=== PATIENT | female | born 1990 | race Caucasian/White ===

== ENCOUNTER → 2016-03-09 | Outpatient (CLI) | payer BC ==
[~2016-03-09] MED LIST: CIPR500T78 PO; HYDR-757 PO; HYOS0.1217 PO; IBUP-15 PO; LEVO25TA5; ONDA-42 SL; SULF1TAB35 PO; TRAM-21 PO
--- NOTE | 2016-03-09 18:24 | Diagnostic Imaging Report ---
EXAMINATION: Transabdominal and transvaginal pelvic ultrasound. INDICATION: Irregular cycles. Pelvic pain. FINDINGS: The urinary bladder appears unremarkable. The uterus is 6.2 x 4.6 x 2.7 cm. The endometrial stripe is 0.7 cm in thickness. The myometrium is slightly heterogenous with no discrete lesion. Multiple numerous foci of hyperechogenicity is seen in the myometrium. This can be seen with adenomyosis. The right ovary is 2.9 x 1.9 x 1.7 cm. The left ovary is 3.3 x 2.6 x 1.7 cm. Both ovaries demonstrate arterial and venous waveforms. Normal follicles are seen. No adnexal mass or significant free fluid. No fluid collection is seen. IMPRESSION: Heterogenous myometrium with no discrete lesion. The findings could be related to adenomyosis. Dictated by: Dictated on workstation # [id number]
== END ==
LOC: RAD 13:27
PROVIDERS: ATTEND Obstetrics & Gynecology
DX: R10.2 Pelvic and perineal pain (principal); N93.8 Other specified abnormal uterine and vaginal bleeding
CPT/HCPCS: 76830; 76856

== ENCOUNTER → 2016-05-15 | Outpatient (CLI) | payer BC ==
--- NOTE | 2016-05-15 15:10 | Diagnostic Imaging Report ---
EXAMINATION: Transabdominal and transvaginal pelvic ultrasound. INDICATION: Pelvic pain. Check IUD. FINDINGS: The uterus is 7.2 x 5.3 x 4.1 cm. The endometrial stripe is 1 cm in thickness. The IUD appears to be in good position. The left ovary is 4.3 x 4.2 x 4.9 cm with an underlying simple appearing 3.4 x 4.2 x 3.5 cm cyst. No solid component or internal vascularity is identified. There is vascularity demonstrated in the adjacent ovarian tissue with vascular waveforms of venous and arterial character seen. The right ovary is obscured by bowel gas. The urinary bladder appears unremarkable. IMPRESSION: The IUD is seen and appears to be in good position. There is a simple appearing 4.2 cm left ovarian cyst. Dictated by: Dictated on workstation # [id number]
== END ==
LOC: RAD 14:12
PROVIDERS: ATTEND Obstetrics & Gynecology
DX: R10.2 Pelvic and perineal pain (principal); T83.39XA Other mechanical complication of intrauterine contraceptive device, initial encounter
CPT/HCPCS: 76830; 76856

== ENCOUNTER 2016-06-24 10:01 | Emergency (ER) | payer BC ==
[~2016-06-24] VITALS: Ht 152.4 cm; Wt 83.9 kg
[~2016-06-24 10:01] MED LIST changes: -LEVO25TA5; -SULF1TAB35 PO
[2016-06-24] MEDS ORDERED: LEVO25TA5 (10:30)
[2016-06-24 10:37] LABS: BILIRUBIN,URINE NEGATIVE (NEGATIVE); KETONES,URINE 3+ (NEGATIVE); LEUKOCYTE ESTERASE ,URINE 3+ (NEGATIVE); NITRITE,URINE NEGATIVE (NEGATIVE); PH,URINE 7 (5-9); PROTEIN,URINE NEGATIVE (NEGATIVE); UROBILINOGEN,URINE NORMAL (NORMAL)
[2016-06-24 10:45] LABS: WBC,URINE 25-50 /HPF
--- NOTE | 2016-06-24 10:48 | ED Abdominal Pain ---
General Chief Complaint: Abdominal/GI Problems Stated Complaint: OVARY PAIN, POSSIBLY FROM MIRENA Nursing Triage Note: States having a meriana plced 2 months ago. States yesterday having lower rt quad abd pain with diarrhea. No fever. States having difficulty emptying bladder Sepsis Screen: No Definite Risk Source of Information: Patient Exam Limitations: No Limitations History of Present Illness Time Seen By Provider: 10:46 Initial Comments To ER with right lower quadrant abdominal pain. States she has had some diarrhea with this. No fevers or chills. She does have a sensation of difficulty emptying her bladder. She had a Mirena placed 2 months ago. She has had some vaginal discharge. Timing/Duration: 1-2 Days Severity/Quality: Moderate Radiation: No Radiation Activities at Onset: None Associated Symptoms: No Fever/Chills, No Nausea/Vomiting Allergies and Home Medications Allergies Coded Allergies: Penicillins (Unverified Allergy, Unknown, 06/24/16) Home Medications Ibuprofen 200 Mg Tablet, 600 MG PO Q6H PRN for CRAMPS, #60 Prescribed by: KENNETH MUNOZ on 10/22/14 1035 Levothyroxine Sodium 25 Mcg Tablet, #30 (Reported) Review of Systems Constitutional: see HPI EENTM: No Symptoms Reported Respiratory: No Symptoms Reported Cardiovascular: No Symptoms Reported Gastrointestinal: See HPI, Abdominal Pain, Diarrhea Genitourinary: No Symptoms Reported Musculoskeletal: no symptoms reported Skin: no symptoms reported Psychiatric/Neurological: No Symptoms Reported Endocrine: No Symptoms Reported Hematologic/Lymphatic: No Symptoms Reported Past Xxrntnd-Fdywlf-Rkqlyv Hx Patient Social History Alcohol Use: Denies Use Recreational Drug Use: No Smoking Status: Never a Smoker 2nd Hand Smoke Exposure: No Recent Foreign Travel: No Contact w/Someone Who Travel: No Recent Infectious Disease Expo: No Recent Hopitalizations: No Immunizations Up To Date Tetanus Booster (TDap): More than 5yrs Seasonal Allergies Seasonal Allergies: Yes Surgeries HX Surgeries: Yes (LEFT ARM FX ORIF, lap for endometrosis) Surgeries: Orthopedic Respiratory Hx Respiratory Disorders: No Cardiovascular Hx Cardiac Disorders: No Neurological Hx Neurological Disorders: No Reproductive System Hx Reproductive Disorders: Yes Female Reproductive Disorders: Menstrual Problems Genitourinary Hx Genitourinary Disorders: No Genitourinary Disorders: Bladder Infection Gastrointestinal Hx Gastrointestinal Disorders: No Musculoskeletal Hx Musculoskeletal Disorders: Yes Musculoskeletal Disorders: Fractures Endocrine Hx Endocrine Disorders: Yes Endocrine Disorders: Hypothyroidsim Cancer Hx Cancer: No Psychosocial Hx Psychiatric Problems: No Integumentary HX Skin/Integumentary Disorder: No Blood Transfusions Hx Blood Disorders: No Family Medical History Family Medial History: FH: depression Physical Exam Vital Signs VS - Last 72 Hours, by Label 06/24/16 10:23 Pulse 91 Resp 18 B/P (MAP) 117/79 Pulse Ox 100 Capillary Refill : Less Than 3 Seconds General Appearance: WD/WN, no apparent distress HEENT: PERRL/EOMI, normal ENT inspection Neck: non-tender, full range of motion Respiratory: no respiratory distress, no accessory muscle use Cardiovascular: regular rate, rhythm, no murmur Gastrointestinal: normal bowel sounds, soft, tenderness Extremities: normal range of motion, non-tender Pelvic: discharge (there is a bit of discharge from the cervix that is mucousy in appearance. The strings of the IUD are seen in place. There is some cervical friability.), other Neurologic/Psychiatric: alert, normal mood/affect, oriented x 3 Skin: normal color, warm/dry Progress/Results/Core Measures Results/Orders Lab Results Laboratory Tests Test 06/24/16 10:20 06/24/16 10:59 06/24/16 11:09 Range/Units Urine Color YELLOW Urine Clarity CLEAR Urine pH 7 5-9 Urine Specific [place] 1.010 L 1.016-1.022 Urine Protein NEGATIVE NEGATIVE Urine Glucose (UA) NEGATIVE NEGATIVE Urine Ketones 3+ H NEGATIVE Urine Nitrite NEGATIVE NEGATIVE Urine Bilirubin NEGATIVE NEGATIVE Urine Urobilinogen NORMAL NORMAL MG/DL Urine Leukocyte Esterase 3+ H NEGATIVE Urine RBC (Auto) 3+ H NEGATIVE Urine RBC NONE /HPF Urine WBC 25-50 H /HPF Urine Squamous Epithelial Cells 5-10 /HPF Urine Crystals NONE /LPF Urine Bacteria TRACE /HPF Urine Casts NONE /LPF Urine Mucus NEGATIVE /LPF Urine Culture Indicated YES White Blood Count 11.1 H 4.3-11.0 10^3/uL Red Blood Count 4.70 4.35-5.85 10^6/uL Hemoglobin 13.7 11.5-16.0 G/DL Hematocrit 41 35-52 % Mean Corpuscular Volume 87 80-99 FL Mean Corpuscular Hemoglobin 29 25-34 PG Mean Corpuscular Hemoglobin Concent 34 32-36 G/DL Red Cell Distribution Width 12.4 10.0-14.5 % Platelet Count 279 130-400 10^3/uL Mean Platelet Volume 10.7 H 7.4-10.4 FL Neutrophils (%) (Auto) 73 42-75 % Lymphocytes (%) (Auto) 17 12-44 % Monocytes (%) (Auto) 7 0-12 % Eosinophils (%) (Auto) 3 0-10 % Basophils (%) (Auto) 0 0-10 % Neutrophils # (Auto) 8.1 H 1.8-7.8 X 10^3 Lymphocytes # (Auto) 1.8 1.0-4.0 X 10^3 Monocytes # (Auto) 0.8 0.0-1.0 X 10^3 Eosinophils # (Auto) 0.4 H 0.0-0.3 10^3/uL Basophils # (Auto) 0.0 0.0-0.1 10^3/uL Micro Results Microbiology 06/24/16 Genital Culture, Resulted Pending 06/24/16 Wet Prep - Final, Resulted My Orders Orders - MICHELLE VALENTIN APRN Cbc With Automated Diff (06/24/16 10:48) Wet Prep (06/24/16 10:54) Neisseria Gonorrhea Dna (06/24/16 10:54) Chlamydia Dna (06/24/16 10:54) Genital Culture (06/24/16 10:54) Ct Abdomen/Pelvis Wo (06/24/16 11:15) Vital Signs/I&O Vital Sign - Last 12Hours 06/24/16 10:23 Pulse 91 Resp 18 B/P (MAP) 117/79 Pulse Ox 100 Blood Pressure Mean: 92 Point of Care Testing Urine -Bedside: Negative Diagnostic Imaging Diagonstic Imaging: CT Comments NAME: PORFIRIO THURSTON [facility] REC#: [id number] PT STATUS: REG ER : 1990 PHYSICIAN: MICHELLE VALENTIN APRN ADMIT DATE: 06/24/16/ER Draft Date of Exam:06/24/16 CT ABDOMEN/PELVIS WO PROCEDURE: CT abdomen and pelvis without contrast. TECHNIQUE: Multiple contiguous axial images were obtained through the abdomen and pelvis without the use of intravenous contrast. INDICATION: Pelvic pain and diarrhea which has increased in severity over the past several days. The liver, gallbladder and bile ducts are normal. The spleen, pancreas and adrenals are normal. There is a 3 mm nonobstructing calculus in the upper pole of the left kidney. The right kidney is normal. There is no hydronephrosis on either side. The ureters and bladder are normal. There is an IUD in the uterus. There is a single septated cyst or two adjacent cysts in the left adnexa which involve an area measuring 2.7 x 4.4 cm. There is no right adnexal mass. No acute bowel abnormality is seen. There is no free intraperitoneal air or fluid. IMPRESSION: There is a small nonobstructing calculus in the left kidney. There is a septated cyst or two adjacent cysts in the left adnexa. No other abnormality is seen. Dictated on workstation # [id number] Dict: 06/24/16 1155 Trans: 06/24/16 1209 LISA [id number] Interpreted by: GONZALEZ NEWMAN MD Electronically signed by: Departure Communication Progress Notes 1230-there was no mention of the appendix on the CT report so I called Dr. Newman at radiology in [place]. He states that her appendix is within normal limits at this time after reviewing again. Impression Impression: Primary Impression: Urinary tract infection Disposition: 01 HOME, SELF-CARE Condition: Stable Departure-Patient Inst. Decision time for Depature: 12:28 Referrals: ERROL JACKSON MD (PCP/Family) Primary Care Physician Add. Discharge Instructions: 1. Return to ER for any worsening pain, high fevers or other concerns 2. And buttocks as directed 3. See your doctor next week All discharge instructions reviewed with patient and/or family. Voiced understanding. Scripts Sulfamethoxazole/Trimethoprim (Bactrim Ds Tablet) 1 Each Tablet 1 EACH PO BID, #10 TAB Prov: MICHELLE VALENTIN CIRCULAR [employer] FUSER 06/24/16 MICHELLE VALENTIN [employer] FUSER June 24, 2016 10:47
[2016-06-24 11:07] LABS: BASOPHILS % (AUTO) 0 % (0-10); EOSINOPHILS # (AUTO) 0.4 10^3/uL (0.0-0.3); EOSINOPHILS % (AUTO) 3 % (0-10); LYMPHOCYTES # (AUTO) 1.8 X 10^3 (1.0-4.0); LYMPHOCYTES % (AUTO) 17 % (12-44); MEAN CORPUSCULAR HEMOGLOBIN 29 PG (25-34); MEAN CORPUSCULAR HGB CONC 34 G/DL (32-36); MEAN CORPUSCULAR VOLUME 87 FL (80-99); MEAN PLATELET VOLUME 10.7 FL (7.4-10.4); MONOCYTES # (AUTO) 0.8 X 10^3 (0.0-1.0); MONOCYTES % (AUTO) 7 % (0-12); NEUTROPHILS # (AUTO) 8.1 X 10^3 (1.8-7.8); NEUTROPHILS % (AUTO) 73 % (42-75); PLATELET COUNT 279 10^3/uL (130-400); RED CELL DISTRIBUTION WIDTH 12.4 % (10.0-14.5); WHITE BLOOD COUNT 11.1 10^3/uL (4.3-11.0)
--- NOTE | 2016-06-24 12:10 | Diagnostic Imaging Report ---
PROCEDURE: CT abdomen and pelvis without contrast. TECHNIQUE: Multiple contiguous axial images were obtained through the abdomen and pelvis without the use of intravenous contrast. INDICATION: Pelvic pain and diarrhea which has increased in severity over the past several days. The liver, gallbladder and bile ducts are normal. The spleen, pancreas and adrenals are normal. There is a 3 mm nonobstructing calculus in the upper pole of the left kidney. The right kidney is normal. There is no hydronephrosis on either side. The ureters and bladder are normal. There is an IUD in the uterus. There is a single septated cyst or two adjacent cysts in the left adnexa which involve an area measuring 2.7 x 4.4 cm. There is no right adnexal mass. No acute bowel abnormality is seen. There is no free intraperitoneal air or fluid. The appendix measures 6mm. There is no tiera appendiceal edema. IMPRESSION: There is a small nonobstructing calculus in the left kidney. There is a septated cyst or two adjacent cysts in the left adnexa. No other abnormality is seen. Dictated by: Dictated on workstation # [id number]
[2016-06-24] MEDS ORDERED: SULF1TAB35 PO (12:31)
[2016-06-24 12:50] VITALS: BP 115/60
== END 2016-06-24 12:45 | disposition home or self-care (01) ==
LOC: EDUNIT# 10:01 → ER 10:03
DX: N39.0 Urinary tract infection, site not specified (principal); N83.202 Unspecified ovarian cyst, left side; N20.0 Calculus of kidney; Z97.5 Presence of (intrauterine) contraceptive device
CPT/HCPCS: 36415; 74176; 81000; 84703; 85025; 87070; 87088; 87210; 87491; 87591; 99284

== ENCOUNTER → 2018-02-01 | Outpatient (CLI) | payer BC ==
[~2018-02-01] MED LIST changes: +HYDR-4226 PO; -HYDR-757 PO; -IBUP-15 PO; +IBUP-16 PO; +LEVO25TA5; +SULF1TAB35 PO
--- NOTE | 2018-02-01 13:41 | Diagnostic Imaging Report ---
INDICATION: Pelvic pain with breakthrough bleeding. EXAMINATION: OB sonogram. TECHNIQUE: Transabdominal and endovaginal scanning of the pelvis was performed. FINDINGS: Uterus measures 6.6 x 5.4 x 3 cm. Endometrial stripe is 8 mm. The myometrium and endometrium appear normal. There is an IUD in place that appears to be in satisfactory position. There are small follicles on ovaries. There is a trace amount of free fluid in the cul-de-sac. IMPRESSION: Unremarkable pelvic sonogram. Dictated by: Dictated on workstation # [id number]
== END ==
LOC: RAD 10:48
PROVIDERS: ATTEND Obstetrics & Gynecology
DX: N92.1 Excessive and frequent menstruation with irregular cycle (principal)
CPT/HCPCS: 76830; 76856

== ENCOUNTER → 2018-11-12 | Outpatient (CLI) | payer BC ==
--- NOTE | 2018-11-12 10:40 | Diagnostic Imaging Report ---
PROCEDURE: US Gallbladder. TECHNIQUE: Multiple real-time grayscale images were obtained over the right upper quadrant in various projections. INDICATION: Right upper quadrant pain. FINDINGS: Liver measures 15.4 cm. No discrete liver mass is identified. Gallbladder is without stones or sludge. No wall thickening or biliary duct dilatation is seen. Visualized pancreas is unremarkable. Right kidney is without calculi or hydronephrosis. There is no ascites. IMPRESSION: Unremarkable gallbladder ultrasound. Dictated by: Dictated on workstation # [id number]
== END ==
LOC: RAD 08:23
PROVIDERS: ATTEND Nurse Practitioner Family
DX: R10.11 Right upper quadrant pain (principal)
CPT/HCPCS: 76705

== ENCOUNTER → 2020-11-12 | Outpatient (CLI) | payer BC ==
[~2020-11-12] MED LIST changes: -SULF1TAB35 PO; +SULF1TAB38 PO
--- NOTE | 2020-11-12 10:11 | Diagnostic Imaging Report ---
Clinical indication: Patient with abdominal pain. EXAM: Right upper quadrant ultrasound. COMPARISON: Right upper quadrant ultrasound dated 11/12/2018. FINDINGS: The liver measures 16 cm. The liver has normal echogenicity and echotexture. The liver surface is smooth. The main portal vein demonstrates hepatopetal flow. There is no intrahepatic ductal dilation. Common bile duct measures 3 mm. Gallbladder is mildly fluid filled with no stones or mass. There is no significant gallbladder wall thickening. There is no sonographic Schumacher sign. There is no pericholecystic fluid. Pancreatic tail is partially obscured by bowel gas. The pancreatic head and body is unremarkable. Visualized portions IVC and abdominal aorta is grossly unremarkable. There is no abdominal ascites. IMPRESSION: Limited exam due to patient body habitus and overlying bowel gas. There is no evidence of acute abnormality on this right upper quadrant ultrasound. Gallbladder is unremarkable. Dictated by: Dictated on workstation # [id number]
== END ==
LOC: RAD 08:22
PROVIDERS: ATTEND Physician Assistant
DX: R10.11 Right upper quadrant pain (principal)
CPT/HCPCS: 76705

== ENCOUNTER → 2020-12-16 | Outpatient (CLI) | payer BC ==
[~2020-12-16] MED LIST changes: +CATHETER FLUSH 10 ML SYR IV PRN
--- NOTE | 2020-12-16 12:32 | Diagnostic Imaging Report ---
INDICATION: Right upper quadrant pain COMPARISON: Gallbladder ultrasound from 11/12/2020 TECHNIQUE: Anterior scintigraphic imaging of the abdomen was performed after the intravenous administration of 5.74 mCi Tc-99m Choletec. FINDINGS: The upper abdomen was imaged for 60 minutes with the gamma camera. There is prompt homogeneous uptake of radiopharmaceutical by the liver. There is activity in the common duct and gallbladder by 20 minutes. Small bowel activity is seen by 35 minutes. After 60 minutes, the patient received 8 oz of ensure by mouth. After 60 minutes, the gallbladder ejection fraction was calculated to be 19% which is abnormally low. IMPRESSION: 1. Patent common and cystic bile ducts. 2. Diminished gallbladder ejection fraction can be seen with chronic cholecystitis, biliary dyskinesia, or other less common etiologies. Dictated by: Dictated on workstation # [id number]
== END ==
LOC: CARD 10:00
PROVIDERS: ATTEND Physician Assistant
DX: K81.1 Chronic cholecystitis (principal)
CPT/HCPCS: 78227; A9537

== ENCOUNTER 2021-01-10 05:33 | Outpatient (CLI) | payer BC ==
[~2021-01-10] VITALS: Ht 152.4 cm; Wt 95.8 kg
[~2021-01-10 05:33] MED LIST changes: -CATHETER FLUSH 10 ML SYR IV PRN
== END 2021-01-10 10:22 | disposition home or self-care (01) ==
LOC: PREOP 05:33
PROVIDERS: ATTEND Surgery
DX: Z01.818 Encounter for other preprocedural examination (principal)

== ENCOUNTER 2021-01-12 07:16 | Day surgery (SDC) | payer BC ==
[2021-01-12] VITALS (11 sets, daily range): BP systolic 96–117; BP diastolic 57–82
[~2021-01-12] VITALS: Ht 152.4 cm; Wt 95.8 kg
[2021-01-12] MEDS ORDERED: LIDOCAINE/EPI 1%-1:100,000 (XYLOCAINE) 20ML ONE (07:31)
[2021-01-12] MEDS: LACTATED RINGERS 1,000 ML IV PRN ×2 (07:53→10:12)
[2021-01-12] MEDS ORDERED: CLINDAMYCIN 600 MG/50 ML IVPB 50 ML IV ONE ×2 (07:56→08:00)
--- NOTE | 2021-01-12 07:56 | Progress Note-Pre Operative ---
Pre-Operative Progress Note H&P Reviewed The H&P was reviewed, patient examined and no changes noted. Date Seen by Provider: Jan 12, 2021 Time Seen by Provider: 07:55 Date H&P Reviewed: Jan 12, 2021 Time H&P Reviewed: 07:55 Pre-Operative Diagnosis: ruq abd pain biliary dyskinesia CALLY ROBERTSON DO Jan 12, 2021 07:56
[2021-01-12] MEDS ORDERED: ONDANSETRON 4 MG/2 ML (SDV) Z0FRAN ONE (08:45)
[2021-01-12] MEDS ORDERED: SEVOFLURANE (ULTANE) 15 ML INHAL SOLN ONE ×2 (08:45→09:18)
[2021-01-12] MEDS ORDERED: proPOfol 200 MG/20 ML (DIPRIVAN) VIAL IV ONE (08:45)
[2021-01-12] MEDS ORDERED: fentaNYL INJ 100 MCG/2 ML AMP ONE (08:45)
[2021-01-12] MEDS ORDERED: LIDOCAINE PF 2% 5 ML (XYLOCAINE) VIAL ONE (08:45)
[2021-01-12] MEDS ORDERED: MIDAZOLAM 2 MG/2 ML (VERSED) VIAL ONE (08:45)
[2021-01-12] MEDS ORDERED: morphine INJ 10 MG/ML 1ML (SYR OR VIAL) ONE (09:18)
[2021-01-12] MEDS ORDERED: ROCURONIUM 50 MG/5 ML (ZEMURON) VIAL IV ONE (09:44)
--- NOTE | 2021-01-12 09:50 | Progress Note-Post Operative ---
Post-Operative Progess Note Surgeon (s)/Foster Care Social Worker (s) Surgeon CALLY ROBERTSON DO Foster Care Social Worker: Dr. Frank to assist in retraction dissection and closure. Pre-Operative Diagnosis ruq abd pain biliary dyskinesia Post-Operative Diagnosis same Procedure & Operative Findings Date of Procedure 01/12/21 Procedure Performed/Findings PROCEDURE: Laparoscopic cholecystectomy with intraoperative cholangiogram. COMPLICATIONS: None. PROCEDURE: The patient was taken to the operating suite and was prepped and draped in sterile fashion. A surgical pause was performed. Just superior to the umbilicus, a 12 mm incision was made. Dissection was taken down to the fascia, which was then scored and grasped with a Darci and the abdomen was then entered. A 0 Vicryl suture was placed in a jekqtf-er-xzoim fashion and a Jones trocar was placed and secured. Pneumoperitoneum was achieved. A 5mm trochar place in the subxyphoid and 2 in the right upper quadrant. The gallbladder was then grasped and elevated. The cystic duct, and cystic artery were then dissected out. Clip was placed on the distal portion of the cystic duct which was then partially transected. An arrow catheter was inserted into the duct. The cholangiogram was then performed. No filing defects and contrast made its way into the duodenum. Catheter removed. Clips were placed on proximal portion of the cystic duct and then the duct was then transected. Clips were placed along the proximal and distal portion of the cystic artery which was then transected. Hook cautery was used to dissect the gallbladder from the gallbladder fossa achieving hemostasis. The gallbladder was placed in an Endobag and removed through the 12 mm trocar site. The abdomen was then reinspected. Copious amounts of irrigation were used to irrigate the abdomen and there were no signs of active bleeding. Hemostasis had been achieved. The 12 mm fascial defect was then closed with 0 Vicryl suture that had been placed in a srliri-uk-okfsy fashion. The abdomen was then desufflated, the trocars were removed. The abdomen was then washed and dried. The skin was then closed using 4-0 Monocryl in a subcuticular fashion. The abdomen was washed and dried and Skin Affix was place over incisions. Patient tolerated the procedure well without any complications and was taken to the recovery room in stable condition. Anesthesia Type general Estimated Blood Loss Estimated blood loss (mL): minimal Specimens/Packing Specimens Removed gallbladder CALLY ROBERTSON DO Jan 12, 2021 09:50
[2021-01-12] MEDS ORDERED: ACHD5005 PO (09:51)
[2021-01-12] MEDS ORDERED: DOCU-143 PO (09:51)
--- NOTE | 2021-01-12 09:51 | Discharge Inst-Simple/Standard ---
Discharge Inst-Standard Discharge Medications New, Converted or Re-Newed RX: Transmitted to Pharmacy Patient Instructions/Follow Up Plan of Care/Instructions/FU: 2 weeks Bruce Activity as Tolerated: No Discharge Diet: Regular Diet Other Inst to Patient Follow up Appt: Make appointment for 2 weeks. Instructions: No lifting greater than 10 pounds. No strenuous activity. May shower in 24 hours, no tub bath or soaking. Use incentive spirometer at home as directed. No Smoking Skin/Wound Care: You have special glue over incision, it will fall off on it's own. Symptoms to Report: Appetite Changes, Extremity Discoloration, Numbness/Tingling, Swelling Increased, Bleeding Excessive, Eyesight Changes, Pain Increased, Urine Color Change, Constipation(Persistent), Fever over 101 degree F, Pain/Pressure in chest, Urinating Difficulty, Cough Up/Vomit Blood, Heart Beat Irreg/Pounding, Pain/Pressure in jaw, Vaginal Bleeding Increase, Cramps in feet or legs, Lightheadedness, Pain/Pressure in shoulder, Diarrhea(Persistent), Memory Changes Suddenly, Questions/Concerns, Weight gain consecutive days, Dizziness/Fainting, Nausea/Vomiting, Shortness of Breath, Weight gain over 2 pounds. If eyes or skin turn yellow notify physician. If questions or concerns contact your physician Or seek help at emergency department. CALLY ROBERTSON DO Jan 12, 2021 09:51
--- NOTE | 2021-01-12 09:58 | Anesthesia-General Post-Op ---
General Patient Condition Mental Status/LOC: Same as Preop Cardiovascular: Satisfactory Nausea/Vomiting: Absent Respiratory: Satisfactory Pain: Controlled Complications: Absent Post Op Complications Complications None Follow Up Care/Instructions Patient Instructions None needed. Anesthesia/Patient Condition Patient Condition Patient is doing well, no complaints, stable vital signs, no apparent adverse anesthesia problems. No complications reported per nursing. SEBASTIÁN VANCE CRNA Jan 12, 2021 09:58
[2021-01-12] MEDS ORDERED: morphine INJ 10 MG/ML 1ML (SYR OR VIAL) IVP ONE (10:00)
[2021-01-12] MEDS ORDERED: ONDANSETRON 4 MG/2 ML (SDV) Z0FRAN IVP PRN (10:00)
[2021-01-12] MEDS ORDERED: MEPERIDINE (DEMEROL) INJ 50 MG/ML IVP ONE (10:00)
[2021-01-12] MEDS ORDERED: fentaNYL INJ 100 MCG/2 ML AMP IVP ONE (10:00)
[2021-01-12] MEDS ORDERED: HYDROcodone/APAP 5 MG/325 MG (LORTAB) TAB PO ONE (11:00)
[2021-01-12] MEDS ORDERED: HYDROcodone/APAP 5 MG/325 MG (LORTAB) TAB ONE (11:01)
--- NOTE | 2021-01-12 11:32 | Diagnostic Imaging Report ---
Indication: Cholecystectomy IMPRESSION: 8 seconds of fluoroscopy was used for the cholangiogram in surgery. 35 images show normal appearance to the common bile duct and major intrahepatic radicles. No filling defects are seen. There is flow of contrast into the duodenum. Normal cholangiogram. Dictated by: Dictated on workstation # [id number]
== END 2021-01-12 12:00 ==
LOC: SDC 07:16
PROVIDERS: ATTEND Surgery
DX: K81.1 Chronic cholecystitis (principal); K82.8 Other specified diseases of gallbladder; Z68.41 Body mass index [BMI] 40.0-44.9, adult
CPT/HCPCS: 76000; 84703; 87081; 94664

== ENCOUNTER 2021-05-18 11:53 | Emergency (ER) | payer BC ==
[~2021-05-18] VITALS: Ht 152 cm; Wt 95.8 kg
[~2021-05-18 11:53] MED LIST changes: +ACHD5005 PO; +DOCU-143 PO
--- NOTE | 2021-05-18 12:40 | ED Abdominal Pain ---
General Chief Complaint: Abdominal/GI Problems Stated Complaint: ABD PAIN Source of Information: Patient Exam Limitations: No Limitations (PEGGY LEIJA MED STUDENT) History of Present Illness Date Seen by Provider: May 18, 2021 Time Seen by Provider: 12:25 Initial Comments Mrs. Wise is a 30yo female with PMH of cholecystectomy, and endometriosis that presents to ED today due to R abd pain. She states that she woke up with this pain about 3 weeks ago and it has gotten worse. She went to [facility] who tested her for UTI, was found to be negative but her pain persisted. She came to ED today because she states that the pain has increased. Pain is in the RUQ but near the umbilicus, describes it as sharp and radiates up into RUQ. She has not had pain like this before. Other than abdominal pain she denies any urinary, bowel, or metal hanging helper symptoms. No fevers. Has tried heating pad and ibuprofen with no improvement. Working and lifting makes it worse. She does have an IUD. LBM an hour ago. Denies smoking, drinking, or drugs. (PEGGY LEIJA MED STUDENT) Allergies and Home Medications Allergies Coded Allergies: Penicillins (Verified Allergy, Unknown, 01/12/21) Patient Home Medication List Home Medication List Reviewed: Yes (KASSI GUERRERO MD) Docusate Sodium (Colace) 100 Mg Capsule, 100 MG PO BID Prescribed by: CALLY ROBERTSON on 01/12/21 0951 Hydrocodone/Acetaminophen (Hydrocodone-Acetamin 5-325 mg) 1 Each Tablet, 1 EACH PO Q4H PRN for PAIN-MODERATE (5-7) Prescribed by: CALLY ROBERTSON on 01/12/21 0951 Review of Systems Review of Systems Constitutional: No chills, No fever EENTM: No Blurred Vision, No Double Vision Respiratory: Denies Cough, Denies Shortness of Air, Denies Wheezing Cardiovascular: Denies Chest Pain, Denies Edema, Denies Palpitations Gastrointestinal: Abdominal Pain (RUQ); Denies Constipated, Denies Diarrhea, Denies Nausea; Poor Appetite; Denies Vomiting Genitourinary: Denies Discharge, Denies Hematuria, Denies Other (dysuria) Musculoskeletal: No joint pain, No joint swelling Skin: No lesions, No rash Psychiatric/Neurological: Denies Headache, Denies Numbness (PEGGY LEIJA) Endocrine: No Symptoms Reported (KASSI GUERRERO MD) Past Ypkdpgd-Vfqlna-Cxpqrg Hx Patient Social History Tobacco Use?: No Use of E-Cig and/or Vaping dev: No Substance use?: No Alcohol Use?: No (KASSI GUERRERO MD) Immunizations Up To Date Tetanus Booster (TDap): More than 5yrs (PEGGY LEIJA) Seasonal Allergies Seasonal Allergies: Yes (PEGGY LEIJA) Past Medical History Surgeries: Yes (LEFT ARM FX ORIF, lap for endometrosis) Orthopedic Respiratory: No Currently Using CPAP: No Currently Using BIPAP: No Cardiac: No Neurological: No Reproductive Disorders: Yes Female Reproductive Disorders: Menstrual Problems, Endometriosis, Ovarian Cyst Genitourinary: Yes Bladder Infection, UTI-Chronic Gastrointestinal: No Musculoskeletal: Yes Fractures Endocrine: Yes Hypothyroidsim HEENT: No Cancer: No Psychosocial: No Integumentary: No Blood Disorders: No (PEGGY LEIJA) Gallbladder (KASSI GUERRERO MD) Family Medical History FH: depression Physical Exam Vital Signs Vital Signs - First Documented 05/18/21 12:25 Temp 36.1 Pulse 79 Resp 18 B/P (MAP) 110/78 (89) Pulse Ox 97 (KASSI GUERRERO MD) Vital Signs Capillary Refill : (PEGGY LEIJA) Height/Weight/BMI Height: 5'0.00" Weight: 185lbs. 0oz. 83.870860nv; 41.24 BMI Method:Stated General Appearance: WD/WN, no apparent distress HEENT: PERRL/EOMI, pharynx normal Respiratory: chest non-tender, lungs clear, normal breath sounds Cardiovascular: normal peripheral pulses, regular rate, rhythm, no edema, no murmur Peripheral Pulses: 2+ Radial Pulses (R), 2+ Radial Pulses (L) Gastrointestinal: normal bowel sounds, soft, tenderness (RUQ near umbilicus, tenderness not worse with palpation); No hernia Extremities: non-tender, no pedal edema, no calf tenderness Neurologic/Psychiatric: alert, normal mood/affect, oriented x 3 Skin: normal color, warm/dry (HELADIO,PEGGY MED STUDENT) Progress/Results/Core Measures Results/Orders Lab Results Laboratory Tests Test 05/18/21 13:21 05/18/21 14:16 Range/Units White Blood Count 8.1 4.3-11.0 10^3/uL Red Blood Count 4.92 3.80-5.11 10^6/uL Hemoglobin 14.7 11.5-16.0 g/dL Hematocrit 44 35-52 % Mean Corpuscular Volume 89 80-99 fL Mean Corpuscular Hemoglobin 30 25-34 pg Mean Corpuscular Hemoglobin Concent 34 32-36 g/dL Red Cell Distribution Width 12.8 10.0-14.5 % Platelet Count 283 130-400 10^3/uL Mean Platelet Volume 10.9 9.0-12.2 fL Immature Granulocyte % (Auto) 0 % Neutrophils (%) (Auto) 62 42-75 % Lymphocytes (%) (Auto) 28 12-44 % Monocytes (%) (Auto) 7 0-12 % Eosinophils (%) (Auto) 3 0-10 % Basophils (%) (Auto) 1 0-10 % Neutrophils # (Auto) 5.0 1.8-7.8 10^3/uL Lymphocytes # (Auto) 2.2 1.0-4.0 10^3/uL Monocytes # (Auto) 0.5 0.0-1.0 10^3/uL Eosinophils # (Auto) 0.2 0.0-0.3 10^3/uL Basophils # (Auto) 0.0 0.0-0.1 10^3/uL Immature Granulocyte # (Auto) 0.0 0.0-0.1 10^3/uL Sodium Level 140 135-145 MMOL/L Potassium Level 3.8 3.6-5.0 MMOL/L Chloride Level 105 98-107 MMOL/L Carbon Dioxide Level 23 21-32 MMOL/L Anion Gap 12 5-14 MMOL/L Blood Urea Nitrogen 10 7-18 MG/DL Creatinine 0.65 0.60-1.30 MG/DL Estimat Glomerular Filtration Rate 123 BUN/Creatinine Ratio 15 Glucose Level 96 70-105 MG/DL Calcium Level 9.8 8.5-10.1 MG/DL Corrected Calcium 9.6 8.5-10.1 MG/DL Total Bilirubin 0.4 0.1-1.0 MG/DL Aspartate Amino Transf (AST/SGOT) 18 5-34 U/L Alanine Aminotransferase (ALT/SGPT) 22 0-55 U/L Alkaline Phosphatase 81 40-136 U/L C-Reactive Protein High Sensitivity 0.85 H 0.00-0.50 MG/DL Total Protein 7.9 6.4-8.2 GM/DL Albumin 4.3 3.2-4.5 GM/DL Serum Test, Qualitative NEGATIVE NEGATIVE Urine Color YELLOW Urine Clarity CLEAR Urine pH 8.0 5-9 Urine Specific [place] 1.015 L 1.016-1.022 Urine Protein NEGATIVE NEGATIVE Urine Glucose (UA) NEGATIVE NEGATIVE Urine Ketones NEGATIVE NEGATIVE Urine Nitrite NEGATIVE NEGATIVE Urine Bilirubin NEGATIVE NEGATIVE Urine Urobilinogen 0.2 < = 1.0 MG/DL Urine Leukocyte Esterase 1+ H NEGATIVE Urine RBC (Auto) NEGATIVE NEGATIVE Urine RBC NONE /HPF Urine WBC 2-5 /HPF Urine Squamous Epithelial Cells 10-25 H /HPF Urine Crystals NONE /LPF Urine Bacteria TRACE /HPF Urine Casts NONE /LPF Urine Mucus NEGATIVE /LPF Urine Culture Indicated NO (KASSI GUERRERO MD) My Orders Orders - KASSI GUERRERO MD Cbc With Automated Diff (05/18/21 12:48) Comprehensive Metabolic Panel (05/18/21 12:48) Hs C Reactive Protein (05/18/21 12:48) Hcg,Qualitative Serum (05/18/21 12:48) Ua Culture If Indicated (05/18/21 12:48) Ed Iv/Invasive Line Start (05/18/21 12:48) Us Non Ob Pelvis Comp/Transvag (05/18/21 14:16) Ketorolac Injection (Toradol Injection) (05/18/21 16:30) (KASSI GUERRERO MD) Medications Given in ED Current Medications Medications Dose Ordered Sig/Tammie Route Start Time Stop Time Status Last Admin Dose Admin Ketorolac Tromethamine 30 mg ONCE ONCE IVP 05/18/21 16:30 05/18/21 16:31 DC 05/18/21 16:43 30 MG (KASSI GUERRERO MD) Vital Signs/I&O 05/18/21 05/18/21 12:25 16:51 Temp 36.1 Pulse 79 72 Resp 18 18 B/P (MAP) 110/78 (89) 108/72 Pulse Ox 97 97 (KASSI GUERRERO MD) Progress Progress Note : Progress Note Work-up was unremarkable. Pain and tenderness seem to be most concentrated in the right lower quadrant. Pelvic ultrasound was obtained which revealed a left ovarian cyst but no obvious etiology for the right lower quadrant pain. I discussed potential for further evaluation with the patient which would include a CT of the abdomen and pelvis. We discussed risks and benefits. After discussing risks and benefits, patient elected to forego the CT scan at this time and treat symptoms with careful observation. She was treated with Toradol in the ER and discharged home in stable condition. (KASSI GUERRERO MD) Departure Impression Primary Impression: Right lower quadrant pain Additional Impression: Left ovarian cyst Disposition: HOME, SELF-CARE Condition: Improved Departure-Patient Inst. Decision time for Depature: 16:30 (KASSI GUERRERO MD) Referrals: ERROL JACKSON MD (PCP/Family) Primary Care Physician Patient Instructions: Abdominal Pain, Adult ED, Ovarian Cysts Add. Discharge Instructions: Start with a clear liquid diet and remain on a clear liquid diet for the rest of this evening. This will give your bowels an opportunity to rest. Tomorrow gradually advance your diet with small quantities of bland food as tolerated. For temporary relief of your pain, you may take ibuprofen up to 600 mg every 6 hours and/or Tylenol (acetaminophen) up to 1000 mg every 6 hours as needed. Follow-up with your primary care provider soon as possible to further explore work-up for your pain. The exact cause of your pain is uncertain at this time but possible contributing factors could be endometriosis, viral illness, mesenteric adenitis, etc. Also consider following up with your women's health provider to discuss the potential for further evaluation for possible endometriosis. Call with questions or concerns. Return to the ER if you have worsening symptoms. All discharge instructions reviewed with patient and/or family. Voiced understanding. Medical Student Attestation and Attending Note: I have personally interviewed and examined this patient along with Peggy Leija, MS 4. I have reviewed student documentation including history, physical, and assessments. I agree with the documentation except where otherwise noted. Exam: General: Alert, oriented, no acute distress, well developed HEENT: Normocephalic and atraumatic Heart: Regular rate and rhythm without murmur Lungs: Clear to auscultation bilaterally with normal effort Abdomen: Soft, tenderness throughout the right lower quadrant, nondistended, normal bowel sounds, no masses Neuropsych: Alert, oriented, no focal deficits Skin: Warm and dry without rashes (KASSI GUERRERO MD) Copy Copies To 1: ERROL JACKSON MD Copies To 2: KENNETH MUNOZ DEREK MED STUDENT May 18, 2021 12:40 KASSI GUERRERO MD May 18, 2021 16:35
[2021-05-18 13:35] LABS: BASOPHILS % (AUTO) 1 % (0-10); EOSINOPHILS # (AUTO) 0.2 10^3/uL (0.0-0.3); EOSINOPHILS % (AUTO) 3 % (0-10); HEMATOCRIT 44 % (35-52); HEMOGLOBIN 14.7 g/dL (11.5-16.0); LYMPHOCYTES # (AUTO) 2.2 10^3/uL (1.0-4.0); LYMPHOCYTES % (AUTO) 28 % (12-44); MEAN CORPUSCULAR HEMOGLOBIN 30 pg (25-34); MEAN CORPUSCULAR HGB CONC 34 g/dL (32-36); MEAN CORPUSCULAR VOLUME 89 fL (80-99); MEAN PLATELET VOLUME 10.9 fL (9.0-12.2); MONOCYTES # (AUTO) 0.5 10^3/uL (0.0-1.0); MONOCYTES % (AUTO) 7 % (0-12); NEUTROPHILS % (AUTO) 62 % (42-75); PLATELET COUNT 283 10^3/uL (130-400); WHITE BLOOD COUNT 8.1 10^3/uL (4.3-11.0)
[2021-05-18 13:45] LABS: ALBUMIN 4.3 GM/DL (3.2-4.5); POTASSIUM 3.8 MMOL/L (3.6-5.0)
[2021-05-18 13:46] LABS: CALCIUM 9.8 MG/DL (8.5-10.1)
[2021-05-18 13:48] LABS: TOTAL PROTEIN 7.9 GM/DL (6.4-8.2)
[2021-05-18 13:49] LABS: BILIRUBIN,TOTAL 0.4 MG/DL (0.1-1.0)
[2021-05-18 13:51] LABS: CREATININE SERUM 0.65 MG/DL (0.60-1.30)
[2021-05-18 14:34] LABS: BILIRUBIN,URINE NEGATIVE (NEGATIVE); CLARITY,URINE CLEAR; COLOR,URINE YELLOW; GLUCOSE, URINE (UA) NEGATIVE (NEGATIVE); KETONES,URINE NEGATIVE (NEGATIVE); LEUKOCYTE ESTERASE ,URINE 1+ (NEGATIVE); NITRITE,URINE NEGATIVE (NEGATIVE); PROTEIN,URINE NEGATIVE (NEGATIVE)
[2021-05-18 14:43] LABS: BACTERIA,URINE TRACE /HPF
--- NOTE | 2021-05-18 15:51 | Diagnostic Imaging Report ---
PROCEDURE: Pelvic complete, transabdominal and transvaginal sonogram. Limited pelvic Doppler. TECHNIQUE: Multiple real-time grayscale images were obtained of the pelvis in various projections transabdominally and transvaginally. Limited pelvic duplex images were obtained. HISTORY: RLQ pain. COMPARISON: 02/01/2018. FINDINGS: Uterus: The uterus is anteverted and measures 6.6 x 3.7 x 4.8 cm. The myometrium is homogeneous without fibroids. Endometrium: The endometrium is obscured by an overlying IUD in the fundus. Visualized portions of the endometrium measure up to 0.6 cm. There is no fluid within the endometrial cavity. Adnexa: There is a 4.6 cm unilocular anechoic cyst within the left adnexa without vascular flow or solid component. The right ovary measures 2.0 x 1.4 x 1.9 cm and the left ovary measures 5.1 x 3.5 x 4.2 cm. Duplex images reveal normal vascular flow to both ovaries. Other: There is no free fluid within the pelvis. IMPRESSION: 1. A 4.6 cm simple-appearing left adnexal cyst is likely benign and requires no follow-up. 2. Otherwise, unremarkable pelvic ultrasound. Dictated by: Dictated on workstation # [id number]
[2021-05-18] MEDS ORDERED: KETOROLAC 30 MG/ML VIAL IVP ONE (16:30)
[2021-05-18 16:51] VITALS: BP 108/72
== END 2021-05-18 16:51 | disposition home or self-care (01) ==
LOC: EDUNIT# 11:53 → ER 11:54
DX: N83.202 Unspecified ovarian cyst, left side (principal); R10.31 Right lower quadrant pain; Z90.49 Acquired absence of other specified parts of digestive tract
CPT/HCPCS: 36415; 76830; 76856; 80053; 81000; 84703; 85025; 86141

== ENCOUNTER 2021-11-05 19:01 | Emergency (ER) | payer BC ==
[~2021-11-05] VITALS: Ht 152.4 cm; Wt 89.8 kg
[2021-11-05] MEDS ORDERED: LACTATED RINGERS 1,000 ML IV ONE (19:30)
[2021-11-05 19:48] LABS: BASOPHILS # (AUTO) 0.1 10^3/uL (0.0-0.1); BASOPHILS % (AUTO) 0 % (0-10); EOSINOPHILS # (AUTO) 0.1 10^3/uL (0.0-0.3); EOSINOPHILS % (AUTO) 1 % (0-10); HEMATOCRIT 38 % (35-52); LYMPHOCYTES # (AUTO) 3.6 10^3/uL (1.0-4.0); LYMPHOCYTES % (AUTO) 25 % (12-44); MEAN CORPUSCULAR HEMOGLOBIN 29 pg (25-34); MEAN CORPUSCULAR HGB CONC 34 g/dL (32-36); MEAN CORPUSCULAR VOLUME 86 fL (80-99); MEAN PLATELET VOLUME 10.5 fL (9.0-12.2); MONOCYTES % (AUTO) 7 % (0-12); NEUTROPHILS # (AUTO) 9.5 10^3/uL (1.8-7.8); NEUTROPHILS % (AUTO) 67 % (42-75); PLATELET COUNT 313 10^3/uL (130-400); WHITE BLOOD COUNT 14.4 10^3/uL (4.3-11.0)
[2021-11-05 20:17] LABS: ALBUMIN 4.3 GM/DL (3.2-4.5); BILIRUBIN,TOTAL 0.3 MG/DL (0.1-1.0); CALCIUM 9.8 MG/DL (8.5-10.1); CREATININE SERUM 0.65 MG/DL (0.60-1.30); POTASSIUM 3.9 MMOL/L (3.6-5.0); TOTAL PROTEIN 7.5 GM/DL (6.4-8.2)
[2021-11-05 20:19] LABS: NEUTROPHILS % (MANUAL) 66 %
[2021-11-05 20:20] LABS: BAND NEUTROPHILS 1 %; EOSINOPHILS % (MANUAL) 1 %; LYMPHOCYTES % (MANUAL) 24 %; MONOCYTES % (MANUAL) 8 %; RBC MORPH NORMAL
[2021-11-05 20:23] LABS: BILIRUBIN,URINE NEGATIVE (NEGATIVE); CLARITY,URINE CLEAR; COLOR,URINE YELLOW; GLUCOSE, URINE (UA) NEGATIVE (NEGATIVE); KETONES,URINE NEGATIVE (NEGATIVE); LEUKOCYTE ESTERASE ,URINE NEGATIVE (NEGATIVE); NITRITE,URINE NEGATIVE (NEGATIVE); PH,URINE 5.5 (5-9); PROTEIN,URINE NEGATIVE (NEGATIVE)
[2021-11-05] MEDS ORDERED: NS 100 ML (IVPB) BAG IV ONE (20:30)
[2021-11-05] MEDS ORDERED: HOLD METFORMIN - RECEIVED CONTRAST 20 ML VIAL IV SCH (20:30)
[2021-11-05] MEDS ORDERED: IOHEXOL 350 MG/ML 100 ML (OMNIPAQUE 350) VIAL IV ONE (20:30)
[2021-11-05 20:38] LABS: AMPHETAMINE SCREEN, URINE NEGATIVE (NEGATIVE); BACTERIA,URINE MODERATE /HPF; BARBITURATE SCREEN URINE NEGATIVE (NEGATIVE); BENZODIAZEPINES SCREEN URINE NEGATIVE (NEGATIVE); CANNABINOID SCREEN, URINE POSITIVE (NEGATIVE); COCAINE SCREEN URINE NEGATIVE (NEGATIVE); METHADONE STAT NEGATIVE (NEGATIVE); OPIATE SCREEN URINE NEGATIVE (NEGATIVE); TRICYCLIC ANTIDEPRESSANTS SCRE NEGATIVE (NEGATIVE)
--- NOTE | 2021-11-05 20:38 | ED Abdominal Pain ---
General Chief Complaint: Abdominal/GI Problems Stated Complaint: LOWER ABD PAIN Nursing Triage Note: Pt ambulates to ED 7 with c/o right sided abdominal pain x 1 week. Stated she went to clinic today and they told her to come to ER for a CT. Pt c/o nausea but denies emesis. Pt describes pain as sharp/stabbing, has not taken pain medication today but has taken Tylenol/ibuprofen over the past week with minimal relief. States she is eating/drinking normally and w/o issue. Source of Information: Patient History of Present Illness Date Seen by Provider: Nov 05, 2021 Time Seen by Provider: 19:27 Initial Comments PT ARRIVES VIA POV FROM HOME C/O RLQ PAIN X 1 WEEK PAIN COMES AND GOES, BUT IS STEADILY GETTING WORSE NO RADIATION OF PAIN PAIN IS WORSE WITH SITTING, BETTER WITH LAYING ON LEFT SIDE HAS NOT TAKEN ANYTHING FOR PAIN C/O NAUSEA, NO VOMITING HAS HAD DECREASED APPETITE--ONLY FOOD INTAKE TODAY WAS SOME CRACKERS AROUND 1500 TODAY NO DIARRHEA OR CONSTIPATION, HAD NORMAL BM TODAY NO URINARY SYMPTOMS AND VOIDING A NORMAL AMOUNT NO VAGINAL DISCHARGE OR PAIN IN GENITAL OR PELVIC AREA NO BACK PAIN HAD FEVER OF 100 LAST Sunday10/29/21. NONE SINCE PT HAS IUD IN PLACE. DOES NOT HAVE PERIODS. HAD FIRST ONE IN FOR 5 YEARS, AND HAD NEW ONE PLACED A COUPLE OF MONTHS AGO. HAS HAD PRIOR SURGERY FOR ENDOMETRIOSIS HAS HAD A FEW OVARIAN CYSTS, BUT THIS DOES NOT FEEL THE SAME HAS HAD CHOLECYSTECTOMY. NO CHRONIC MEDICAL PROBLEMS AND DOES NOT TAKE DAILY MEDICATION FOR ANYTHING PCP:DR. JACKSON OB / SENIOR DATA WAREHOUSE ARCHITECT: DR. MUNOZ Allergies and Home Medications Allergies Coded Allergies: Penicillins (Verified Allergy, Unknown, 01/12/21) Patient Home Medication List Docusate Sodium (Colace) 100 Mg Capsule, 100 MG PO BID Prescribed by: CALLY ROBERTSON on 01/12/21 0913 Hydrocodone/Acetaminophen (Hydrocodone-Acetamin 5-325 mg) 1 Each Tablet, 1 EACH PO Q4H PRN for PAIN-MODERATE (5-7) Prescribed by: CALLY ROBERTSON on 01/12/21 0951 Review of Systems Review of Systems Constitutional: see HPI EENTM: No Symptoms Reported Respiratory: No Symptoms Reported Cardiovascular: No Symptoms Reported Gastrointestinal: See HPI, Abdominal Pain; Denies Constipated, Denies Diarrhea; Nausea, Poor Appetite; Denies Vomiting Genitourinary: No Symptoms Reported Musculoskeletal: no symptoms reported Skin: no symptoms reported Psychiatric/Neurological: No Symptoms Reported Endocrine: No Symptoms Reported Hematologic/Lymphatic: No Symptoms Reported Past Jrdaozu-Ehnoia-Polgeq Hx Patient Social History Tobacco Use?: No Smokeless Tobacco Frequency: Never a User Use of E-Cig and/or Vaping dev: No Use of E-Cig and/or Vaping Andrea: Never a User Substance use?: Yes Substance type: Marijuana Additional substance use comme: DENIES BUT UDS + FOR THC 11/04/21 Alcohol Use?: No Pt feels they are or have been: No Immunizations Up To Date Tetanus Booster (TDap): More than 5yrs Influenza Vaccine Up-to-Date: No; Not Current First/Initial COVID19 Vaccinat: NONE Second COVID19 Vaccination [place]: NONE Third COVID19 Vaccination Date: NONE Seasonal Allergies Seasonal Allergies: Yes Past Medical History Surgery/Hospitalization HX: Gallbladder out January 2021, abdominal surgery 6 years ago for endometriosis Surgeries: Yes (LEFT ARM FX ORIF, lap for endometrosis) Gallbladder, Orthopedic Respiratory: No Currently Using CPAP: No Currently Using BIPAP: No Cardiac: No Neurological: No : No Reproductive Disorders: Yes Female Reproductive Disorders: Menstrual Problems, Endometriosis, Ovarian Cyst SENIOR DATA WAREHOUSE ARCHITECT History: IUD Genitourinary: Yes Bladder Infection, UTI-Chronic Gastrointestinal: No Musculoskeletal: Yes (LEFT ARM FX /ORIF) Fractures Endocrine: Yes Hypothyroidsim HEENT: No Cancer: No Psychosocial: No Integumentary: No Blood Disorders: No Family Medical History FH: depression Physical Exam Vital Signs Vital Signs - First Documented 11/05/21 19:24 Temp 36.7 Pulse 82 Resp 16 B/P (MAP) 117/80 (92) Pulse Ox 99 O2 Delivery Room Air Capillary Refill : Height/Weight/BMI Height: 5'0.00" Weight: 185lbs. 0oz. 83.970955my; 38.00 BMI Method:Stated General Appearance: WD/WN, no apparent distress, obese, other (WALKS UPRIGHT AND MOVES WITHOUT DIFFICULTY. VERY PLEASANT. DOES NOT APPEAR ILL OR TO BE IN ANY DISCOMFORT OR DISTRESS) HEENT: PERRL/EOMI; No scleral icterus (R), No scleral icterus (L), No pale conjunctivae (R), No pale conjunctivae (L) Neck: normal inspection Respiratory: normal breath sounds, no respiratory distress, no accessory muscle use Cardiovascular: regular rate, rhythm, no murmur Gastrointestinal: normal bowel sounds, soft, no organomegaly; No distended, No guarding, No rebound; tenderness (RLQ AND SUPRAPUBIC ); No hernia, No mass Extremities: normal inspection Back: normal inspection, no CVA tenderness Neurologic/Psychiatric: lead infrastructure architect II-XII nml as tested, no motor/sensory deficits, alert, normal mood/affect, oriented x 3 Skin: normal color, warm/dry; No rash Progress/Results/Core Measures Results/Orders Lab Results Laboratory Tests Test 11/05/21 19:42 11/05/21 20:15 Range/Units White Blood Count 14.4 H 4.3-11.0 10^3/uL Red Blood Count 4.45 3.80-5.11 10^6/uL Hemoglobin 13.0 11.5-16.0 g/dL Hematocrit 38 35-52 % Mean Corpuscular Volume 86 80-99 fL Mean Corpuscular Hemoglobin 29 25-34 pg Mean Corpuscular Hemoglobin Concent 34 32-36 g/dL Red Cell Distribution Width 12.3 10.0-14.5 % Platelet Count 313 130-400 10^3/uL Mean Platelet Volume 10.5 9.0-12.2 fL Immature Granulocyte % (Auto) 0 % Neutrophils (%) (Auto) 67 42-75 % Lymphocytes (%) (Auto) 25 12-44 % Monocytes (%) (Auto) 7 0-12 % Eosinophils (%) (Auto) 1 0-10 % Basophils (%) (Auto) 0 0-10 % Neutrophils # (Auto) 9.5 H 1.8-7.8 10^3/uL Lymphocytes # (Auto) 3.6 1.0-4.0 10^3/uL Monocytes # (Auto) 1.0 0.0-1.0 10^3/uL Eosinophils # (Auto) 0.1 0.0-0.3 10^3/uL Basophils # (Auto) 0.1 0.0-0.1 10^3/uL Immature Granulocyte # (Auto) 0.0 0.0-0.1 10^3/uL Neutrophils % (Manual) 66 % Lymphocytes % (Manual) 24 % Monocytes % (Manual) 8 % Eosinophils % (Manual) 1 % Band Neutrophils 1 % Blood Morphology Comment NORMAL Sodium Level 139 135-145 MMOL/L Potassium Level 3.9 3.6-5.0 MMOL/L Chloride Level 105 98-107 MMOL/L Carbon Dioxide Level 22 21-32 MMOL/L Anion Gap 12 5-14 MMOL/L Blood Urea Nitrogen 8 7-18 MG/DL Creatinine 0.65 0.60-1.30 MG/DL Estimat Glomerular Filtration Rate 122 BUN/Creatinine Ratio 12 Glucose Level 91 70-105 MG/DL Calcium Level 9.8 8.5-10.1 MG/DL Corrected Calcium 9.6 8.5-10.1 MG/DL Total Bilirubin 0.3 0.1-1.0 MG/DL Aspartate Amino Transf (AST/SGOT) 15 5-34 U/L Alanine Aminotransferase (ALT/SGPT) 20 0-55 U/L Alkaline Phosphatase 70 40-136 U/L Total Protein 7.5 6.4-8.2 GM/DL Albumin 4.3 3.2-4.5 GM/DL Amylase Level 63 25-125 U/L Lipase 49 8-78 U/L Serum Test, Qualitative NEGATIVE NEGATIVE Urine Color YELLOW Urine Clarity CLEAR Urine pH 5.5 5-9 Urine Specific [place] >=1.030 1.016-1.022 Urine Protein NEGATIVE NEGATIVE Urine Glucose (UA) NEGATIVE NEGATIVE Urine Ketones NEGATIVE NEGATIVE Urine Nitrite NEGATIVE NEGATIVE Urine Bilirubin NEGATIVE NEGATIVE Urine Urobilinogen 0.2 < = 1.0 MG/DL Urine Leukocyte Esterase NEGATIVE NEGATIVE Urine RBC (Auto) NEGATIVE NEGATIVE Urine RBC NONE /HPF Urine WBC 10-25 H /HPF Urine Squamous Epithelial Cells 5-10 /HPF Urine Crystals NONE /LPF Urine Bacteria MODERATE H /HPF Urine Casts NONE /LPF Urine Mucus NEGATIVE /LPF Urine Culture Indicated YES Urine Opiates Screen NEGATIVE NEGATIVE Urine Oxycodone Screen NEGATIVE NEGATIVE Urine Methadone Screen NEGATIVE NEGATIVE Urine Propoxyphene Screen NEGATIVE NEGATIVE Urine Barbiturates Screen NEGATIVE NEGATIVE Ur Tricyclic Antidepressants Screen NEGATIVE NEGATIVE Urine Phencyclidine Screen NEGATIVE NEGATIVE Urine Amphetamines Screen NEGATIVE NEGATIVE Urine Methamphetamines Screen NEGATIVE NEGATIVE Urine Benzodiazepines Screen NEGATIVE NEGATIVE Urine Cocaine Screen NEGATIVE NEGATIVE Urine Cannabinoids Screen POSITIVE H NEGATIVE My Orders Orders - GEO GROSS DO Ed Iv/Invasive Line Start (11/05/21 19:29) Urine Bedside (11/05/21 19:29) Amylase (11/05/21 19:29) Cbc With Automated Diff (11/05/21 19:29) Comprehensive Metabolic Panel (11/05/21 19:29) Drug Screen Stat (Urine) (11/05/21 19:29) Hcg,Qualitative Serum (11/05/21 19:29) Lipase (11/05/21 19:29) Ua Culture If Indicated (11/05/21 19:29) Ed Iv/Invasive Line Start (11/05/21 19:29) Lactated Ringers (Lr 1000 Ml Iv Solution (11/05/21 19:30) Manual Differential (11/05/21 19:42) Ct Abd/Pelv W (Appendicitis) (11/05/21 20:12) Iohexol Injection (Omnipaque 350 Mg/Ml 1 (11/05/21 20:30) Received Contrast (Hold Metformin- Contr (11/05/21 20:30) Ns (Ivpb) (Sodium Chloride 0.9% Ivpb Bag (11/05/21 20:30) Urine Culture (11/05/21 20:15) Ketorolac Injection (Toradol Injection) (11/05/21 21:15) Ceftriaxone 1 Gram Iv (11/05/21 21:10) Medications Given in ED Current Medications Medications Dose Ordered Sig/Tammie Route Start Time Stop Time Status Last Admin Dose Admin Iohexol 100 ml ONCE ONCE IV 11/05/21 20:30 11/05/21 20:31 DC 11/05/21 20:39 80 ML Lactated Ringer's 1,000 ml @ 0 mls/hr Q0M ONCE IV 11/05/21 19:30 11/05/21 19:31 DC 11/05/21 19:47 999 MLS/HR Sodium Chloride 100 ml ONCE ONCE IV 11/05/21 20:30 11/05/21 20:31 DC 11/05/21 20:39 80 ML Vital Signs/I&O 11/05/21 19:24 Temp 36.7 Pulse 82 Resp 16 B/P (MAP) 117/80 (92) Pulse Ox 99 O2 Delivery Room Air Blood Pressure Mean: 92 Departure Impression Primary Impression: Urinary tract infection Additional Impressions: Left ovarian cyst Enteritis Right lower quadrant pain Disposition: 01 HOME, SELF-CARE Condition: Stable Departure-Patient Inst. Decision time for Depature: 21:10 Referrals: ERROL JACKSON MD (PCP/Family) Primary Care Physician Patient Instructions: Abdominal Pain, Adult ED, Urinary Tract Infection, Adult ED, Viral Gastroenteritis, Adult (DC) Add. Discharge Instructions: LOTS OF CLEAR LIQUIDS--WATER, BROTH, JELLO, GATORADE BRATS DIET--BANANAS, RICE, APPLESAUCE, TOAST, SALTINES FOLLOW UP WITH YOUR DR IN 2-3 DAYS IF NO BETTER, RETURN TO ER IF WORSE All discharge instructions reviewed with patient and/or family. Voiced understanding. Scripts Naproxen (Naproxen) 500 Mg Tablet.dr 500 MG PO BID, #20 TAB Prov: GEO GROSS DO 11/05/21 Ondansetron (Ondansetron Odt) 4 Mg Tab.rapdis 4 MG PO Q4H for Nausea/Vomiting, #10 TAB Prov: GEO GROSS DO 11/05/21 Nitrofurantoin Monohyd/M-Cryst (Macrobid 100 mg Capsule) 100 Mg Capsule 1 TAB PO BID, #20 CAP Prov: GEO GROSS DO 11/05/21 GEO GROSS DO Nov 05, 2021 20:38
[2021-11-05 20:39] LABS: OXYCODONE STAT NEGATIVE (NEGATIVE); PROPOXYPHENE STAT NEGATIVE (NEGATIVE)
--- NOTE | 2021-11-05 20:53 | Diagnostic Imaging Report ---
PROCEDURE: CT abdomen and pelvis with contrast, rule out appendicitis. TECHNIQUE: Multiple contiguous axial images were obtained through the abdomen and pelvis after the administration of intravenous contrast. All CT scans use one or more of the following dose optimizing techniques: automated exposure control, MA and/or KvP adjustment based on patient size and exam type or iterative reconstruction. INDICATION: Right-sided abdominal pain times one week. Nausea. Sharp stabbing sensation. EXAMINATION: CT abdomen and pelvis with contrast 11/05/2021. COMPARISON: 06/24/2016. FINDINGS: The lung bases appear clear. The liver, spleen, pancreas and adrenal glands unremarkable. There is evidence of previous cholecystectomy. Nonobstructive stones noted in the left kidney with the kidneys otherwise unremarkable. The appendix appears normal. There is a nonobstructive bowel gas pattern with no inflammatory change about the loops of bowel. There are slightly prominent fluid-filled small bowel loops suggesting enteritis. There is no ascites or free air. There is a bilobed cystic lesion versus adjacent separate cyst within the left ovary measuring 3.9 cm in conglomerate. If there is left pelvic pain, sonography could better characterize. IUD noted in the uterus. There is no lymphadenopathy. There is no acute osseous abnormality. There are degenerative changes throughout the spine. IMPRESSION: 1. No evidence for acute appendicitis. 2. Nonobstructing stone in the left kidney. 3. Cystic changes in the left ovary, see above discussion. 4. Findings suspicious for enteritis. Dictated by: Dictated on workstation # [id number]
[2021-11-05] MEDS ORDERED: cefTRIAXone 1 GM PRE-MIX 50 ML IV STA (21:10)
[2021-11-05] MEDS ORDERED: NAPR500T8 PO (21:13)
[2021-11-05] MEDS ORDERED: NITR-65 PO (21:13)
[2021-11-05] MEDS ORDERED: ONDA4TAB11 PO (21:13)
[2021-11-05] MEDS ORDERED: KETOROLAC 30 MG/ML VIAL IVP ONE (21:15)
[2021-11-05] MEDS ORDERED: ONDANSETRON 4 MG/2 ML (SDV) Z0FRAN IVP ONE (21:30)
[2021-11-05 22:06] VITALS: BP 115/77
== END 2021-11-05 22:06 | disposition home or self-care (01) ==
LOC: EDUNIT# 19:01 → ER 19:04
DX: N39.0 Urinary tract infection, site not specified (principal); N83.202 Unspecified ovarian cyst, left side; K52.9 Noninfective gastroenteritis and colitis, unspecified; Z90.49 Acquired absence of other specified parts of digestive tract; Z98.890 Other specified postprocedural states; Z97.5 Presence of (intrauterine) contraceptive device; Z28.310 Unvaccinated for COVID-19
CPT/HCPCS: 36415; 74177; 80053; 80306; 81000; 82150; 83690; 84703; 85007; 85027; 87088